=== PATIENT | female | born 1935 | race Caucasian/White ===

== ENCOUNTER 2018-09-09 20:09 | Outpatient (CLI) | payer MEDICARE | END 2018-09-09 20:10 | disposition critical access hospital (66) | LOC: EMS 20:09 | PROVIDERS: ATTEND Surgery | DX: S01.81XA Laceration without foreign body of other part of head, initial encounter (principal); S09.93XA Unspecified injury of face, initial encounter; R41.0 Disorientation, unspecified; X58.XXXA Exposure to other specified factors, initial encounter; Y92.481 Parking lot as the place of occurrence of the external cause | CPT/HCPCS: A0425; A0429 ==

== ENCOUNTER 2018-09-09 20:26 | Emergency (ER) | payer MEDICARE ==
--- NOTE | 2018-09-09 20:42 | ED Physician Documentation ---
PD HPI ALTERED MENTAL STATUS - Stated complaint Stated Complaint: GLF - Chief complaint Chief Complaint: Trauma Hd/Nk - History obtained from History obtained from: Patient, EMS - History of Present Illness Timing - onset: Today Quality / character: Confused, Disoriented Associated symptoms: No: Fever, Headache, Stiff neck, Dyspnea, Cough, NVD, Urinary sx, General weakness, Seizure activity Contributing factors: COPD, Intoxicated (drinks EtOH daily.) Basline status: Alert and oriented X 3, Ambulatory, Independent Recently seen: Not recently seen - Additional information Additional information: visiting from [place] per pt. She fell in the parking lot. States she drank vodka today. denies any symptoms. unable to get up with EMS. abrasion to the L forehead. Review of Systems Unable to obtain: Intoxicated Constitutional: denies: Fever GI: denies: Vomiting Skin: denies: Rash Musculoskeletal: denies: Neck pain, Back pain PD PAST MEDICAL HISTORY - Past Medical History Past Medical History: Yes Respiratory: COPD - Present Medications Home Medications: Ambulatory Orders Medication Instructions Recorded Confirmed Amoxicillin 500 mg PO TID #30 capsule 09/09/18 - Allergies Allergies/Adverse Reactions: Allergies Allergy/AdvReac Type Severity Reaction Status Date / Time No Known Drug Allergies Allergy Verified 09/09/18 20:33 - Living Situation Living Situation: reports: Alone - Social History Does the pt drink ETOH?: Yes ETOH Use: Liquor - Family History Family history: reports: Non contributory - Immunizations Immunizations are current?: Yes PD ED PE NORMAL - Vitals Vital signs reviewed: Yes - General General: Alert and oriented X 3, No acute distress - HEENT HEENT: PERRL, EOMI, Ears normal, Moist mucous membranes, Other (forehead abrasion, left side. mild periorbital ecchymosis L eye. no hyphema. 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, No motor deficit, No sensory deficit, Normal speech - Psych Psych: Normal mood, Normal affect Results - Vitals Vitals: Vital Signs - 24 hr 09/09/18 09/09/18 09/09/18 20:27 20:41 21:56 Temperature 36.7 C Heart Rate 80 85 72 Respiratory 18 18 16 Rate Blood Pressure 121/80 133/66 H 127/56 L O2 Saturation 93 95 96 09/09/18 09/09/18 09/09/18 22:04 22:27 23:06 Temperature Heart Rate 69 74 68 Respiratory 16 18 16 Rate Blood Pressure 126/57 L 104/63 O2 Saturation 94 95 Oxygen O2 Source Room air - Labs Labs: Laboratory Tests 09/09/18 09/09/18 09/09/18 20:41 20:41 21:46 WBC 8.9 RBC 4.58 Hgb 14.8 Hct 46.2 MCV 100.9 H MCH 32.3 H MCHC 32.0 RDW 11.9 L Plt Count 289 MPV 9.1 Neut # (Auto) 3.7 Lymph # (Auto) 4.3 H [place] # (Auto) 0.6 Eos # (Auto) 0.1 Baso # (Auto) 0.0 Absolute Nucleated RBC 0.00 Nucleated RBC % 0.0 Sodium 143 Potassium 4.1 Chloride 105 Carbon Dioxide 27 Anion Gap 11.0 BUN 25 H Creatinine 0.6 Estimated GFR (MDRD) 96 Glucose 102 H Calcium 8.7 Total Bilirubin 0.3 AST 41 ALT 38 Alkaline Phosphatase 42 Total Protein 6.7 Albumin 3.6 Globulin 3.1 Albumin/Globulin Ratio 1.2 Lipase 89 H Urine Color YELLOW Urine Clarity CLEAR Urine pH 5.5 Ur Specific [place] 1.010 Urine Protein NEGATIVE Urine Glucose (UA) NEGATIVE Urine Ketones NEGATIVE Urine Occult Blood NEGATIVE Urine Nitrite NEGATIVE Urine Bilirubin NEGATIVE Urine Urobilinogen 0.2 (NORMAL) Ur Leukocyte Esterase NEGATIVE Ur Microscopic Review NOT INDICATED Urine Culture Comments NOT INDICATED Salicylates < 6.0 Urine Opiates Screen NEGATIVE Ur Oxycodone Screen NEGATIVE Urine Methadone Screen NEGATIVE Ur Propoxyphene Screen NEGATIVE Acetaminophen < 10 L Ur Barbiturates Screen NEGATIVE Ur Tricyclics Screen NEGATIVE Ur Phencyclidine Scrn NEGATIVE Ur Amphetamine Screen NEGATIVE U Methamphetamines Scrn NEGATIVE U Benzodiazepines Scrn NEGATIVE Urine Cocaine Screen NEGATIVE U Cannabinoids Screen NEGATIVE Ethyl Alcohol 278.9 - Rads (name of study) head Ct Radiology: Prelim report reviewed, EMP read contemporaneously, See rad report (No acute intracranial abnormalities. ) cervical spine ct Radiology: Prelim report reviewed, EMP read contemporaneously, See rad report (No acute fracture or subluxation. Asymmetric moderate to severe calcified plaque of the proximal left internal carotid artery. Nonemergent carotid u ltrasound could be performed for further evaluation to assess for stenosis. ) facial bones CT Radiology: Prelim report reviewed, EMP read contemporaneously, See rad report (Comminuted mildly displaced fractures of the anterior and lateral maxillary sinus goodman. Nondisplaced fracture of the superior maxillary sinus wall. Hemorrhage within the left maxillary sinus. ) PD MEDICAL DECISION MAKING - ED course Complexity details: reviewed results, re-evaluated patient, considered differential, d/w patient, d/w acura sales consultant (Dr. Doe, [facility], will come and evaluate ) ED course: 82-year-old female presents the emergency department after a fall in a parking lot while intoxicated. Negative head and C-spine CT. Facial bone CT reveals a comminuted mildly displaced fracture of the anterior and lateral maxillary sinus goodman. Nondisplaced fracture of the superior maxillary sinus wall. Hemorrhage within the left maxillary sinus. Dr. Doe, oral maxillofacial surgery was consulted. No surgery needed. place on amoxicillin. sinus fracture precautions. Follow up in clinic. Patient counseled regarding signs and symptoms for which I believe and urgent re-evaluation would be necessary. Patient with good understanding of and agreement to plan and is comfortable going home at this time This document was made in part using voice recognition software. While efforts are made to proofread this document, sound alike and grammatical errors may occur. Departure - Departure Disposition: 01 Home, Self Care Clinical Impression: Maxillary sinus fracture Qualifiers: Encounter type: initial encounter Fracture type: closed Qualified Code(s): S02.401A - Maxillary fracture, unspecified side, initial encounter for closed fracture Alcohol intoxication Qualifiers: Complication of substance-induced condition: uncomplicated Qualified Code(s): F10.920 - Alcohol use, unspecified with intoxication, uncomplicated Condition: Good Instructions: ED Alcohol Intoxication, ED Fx Face, ED Head Injury Closed Follow-Up: YUSEF DOE [Physician No Access] - Within 1 week Prescriptions: Amoxicillin 500 mg PO TID #30 capsule Comments: Follow-up with Dr. Doe for further evaluation. Return if you worsen. Take all antibiotics until gone. Follow a soft diet. Do not blow your nose. Do not smoke.
[2018-09-09 20:46] LABS: BASOPHILS % (AUTO) 0.5 %; EOSINOPHILS # (AUTO) 0.1 10^3/uL (0.0-0.7); EOSINOPHILS % (AUTO) 1.4 %; HGB - HEMOGLOBIN 14.8 g/dL (12.0-16.0); LYMPHOCYTES # (AUTO) 4.3 10^3/uL (1.5-3.5); LYMPHOCYTES % (AUTO) 48.5 %; MEAN CORPUSCULAR HEMOGLOBIN 32.3 pg (27.0-31.0); MEAN CORPUSCULAR VOLUME 100.9 fL (81.0-99.0); MEAN PLATELET VOLUME 9.1 fL (7.9-10.8); MONOCYTES # (AUTO) 0.6 10^3/uL (0.0-1.0); MONOCYTES % (AUTO) 7.2 %; NEUTROPHILS # (AUTO) 3.7 10^3/uL (1.5-6.6); NEUTROPHILS % (AUTO) 41.9 %; PLT - PLATELET COUNT 289 10^3/uL (130-450); RED BLOOD COUNT 4.58 10^6/uL (4.20-5.40); RED CELL DISTRIBUTION WIDTH 11.9 % (12.0-15.0); WHITE BLOOD COUNT 8.9 x10^3/uL (4.8-10.8)
[2018-09-09 21:01] LABS: ACETAMINOPHEN < 10 ug/mL (10-30); ALBUMIN 3.6 g/dL (3.2-5.5); ALBUMIN/GLOBULIN RATIO 1.2 (1.0-2.2); ALKALINE PHOSPHATASE 42 IU/L (42-121); ALT ALANINE AMINOTRANSFERASE 38 IU/L (10-60); AST ASPARTATE AMINOTRANSFERASE 41 IU/L (10-42); BILIRUBIN,TOTAL 0.3 mg/dL (0.2-1.0); BUN - BLOOD UREA NITROGEN 25 mg/dL (6-20); CALCIUM 8.7 mg/dL (8.5-10.3); CARBON DIOXIDE - CO2 27 mmol/L (21-32); CHLORIDE 105 mmol/L (101-111); CREATININE 0.6 mg/dL (0.4-1.0); GFR - MDRD 96 (>89); GLUCOSE 102 mg/dL (70-100); LIPASE 89 U/L (22-51); SALICYLATE < 6.0 mg/dL; SODIUM 143 mmol/L (135-145); TOTAL PROTEIN 6.7 g/dL (6.7-8.2)
--- NOTE | 2018-09-09 21:39 | CT Report ---
Reason: fall, neck pain Procedure Date: 09/09/2018 Accession Number: [id number] / [id number] Procedure: CT - CERVICAL SPINE WO CPT Code: FULL RESULT: EXAM: CT CERVICAL SPINE WITHOUT CONTRAST DATE: 09/09/2018 08:58 PM. HISTORY: Fall, neck pain. COMPARISONS: None. TECHNIQUE: Thin-section axial images were acquired of the cervical spine without contrast. Post-processing: Coronal and sagittal reformats. Other: None. In accordance with CT protocol optimization, one or more of the following dose reduction techniques were utilized for this exam: automated exposure control, adjustment of mA and/or KV based on patient size, or use of iterative reconstructive technique. FINDINGS: Alignment: Within normal limits. No scoliosis or spondylolisthesis. Bones: No acute fractures. Multilevel degenerative disk disease, worse at C5-C6 with moderate to severe disk space narrowing and osteophytes. Spinal Canal: No high grade narrowing. Moderate spinal canal narrowing at C5-C6 by posterior disk osteophyte complex. Other: Increased calcified plaque is seen at the proximal left internal carotid artery. Visualized thyroid is unremarkable. Septal thickening at the apices, nonspecific, could reflect edema. IMPRESSION: No acute fracture or subluxation. Asymmetric moderate to severe calcified plaque of the proximal left internal carotid artery. Nonemergent carotid ultrasound could be performed for further evaluation to assess for stenosis. RADIA
--- NOTE | 2018-09-09 21:40 | CT Report ---
Reason: facial pain, s/p fall Procedure Date: 09/09/2018 Accession Number: [id number] / [id number] Procedure: CT - MAXILLOFACIAL WO CPT Code: FULL RESULT: EXAM: CT MAXILLOFACIAL WITHOUT CONTRAST EXAM DATE: 09/09/2018 08:58 PM. CLINICAL HISTORY: Facial pain, s/p fall. COMPARISONS: None. TECHNIQUE: Thin-section axial images were acquired of the face without contrast. Post-processing: Coronal and sagittal reformats. Other: None. In accordance with CT protocol optimization, one or more of the following dose reduction techniques were utilized for this exam: automated exposure control, adjustment of mA and/or KV based on patient size, or use of iterative reconstructive technique. FINDINGS: Soft Tissue: Soft tissue swelling anterior to the left maxillary sinus. Orbits: Symmetric and unremarkable. Bones: Comminuted fractures of the anterior and lateral maxillary sinus goodman extending. Mild displacement. Nondisplaced fracture of the superior maxillary sinus. No herniation of orbital contents. There is acute hemorrhage within the left maxillary sinus. Opacification of the left ethmoid air cells and left frontal sinus. Temporomandibular Joints: The temporomandibular joints are symmetric and normally located. Other: None. IMPRESSION: Comminuted mildly displaced fractures of the anterior and lateral maxillary sinus goodman. Nondisplaced fracture of the superior maxillary sinus wall. Hemorrhage within the left maxillary sinus. RADIA
--- NOTE | 2018-09-09 21:41 | CT Report ---
Reason: fall, head injury Procedure Date: 09/09/2018 Accession Number: [id number] / [id number] Procedure: CT - HEAD WO CPT Code: FULL RESULT: EXAM: CT HEAD EXAM DATE: 09/09/2018 08:58 PM. CLINICAL HISTORY: Fall, head injury. COMPARISON: None. TECHNIQUE: Multiaxial CT images were obtained from the foramen magnum to the vertex. Reformats: Sagittal and coronal. IV contrast: None. In accordance with CT protocol optimization, one or more of the following dose reduction techniques were utilized for this exam: automated exposure control, adjustment of mA and/or KV based on patient size, or use of iterative reconstructive technique. FINDINGS: Parenchyma: No intraparenchymal hemorrhage. No evidence of mass, midline shift or CT findings of acute territorial infarction. Han-white differentiation is distinct. Moderate global atrophy. Deep white matter low attenuation likely reflects chronic micro-angiopathic ischemic change. Extraaxial Spaces: No subdural or epidural collections identified. Ventricles: No hydrocephalus Bones: No evidence of acute skull fractures. See CT maxillofacial report. Other: None. IMPRESSION: No acute intracranial abnormalities. RADIA
[2018-09-09] MEDS ORDERED: IPRATROPIUM/ALBUTEROL 3 ML NEB INH STA (21:50)
[2018-09-09] MEDS ORDERED: ACETAMINOPHEN 325 MG TABLET PO STA (21:51)
[2018-09-09 21:58] LABS: MUDS CUTOFF CONCENTRATIONS CUTOFF CONC BELOW:
[2018-09-09 22:02] LABS: BILIRUBIN,URINE NEGATIVE (NEGATIVE); CLARITY,URINE CLEAR (CLEAR); GLUCOSE, URINE (UA) NEGATIVE (NEGATIVE); KETONES,URINE (UA) NEGATIVE (NEGATIVE); LEUKOCYTE ESTERASE, URINE NEGATIVE (NEGATIVE); NITRITE,URINE NEGATIVE (NEGATIVE); OCCULT BLOOD,URINE NEGATIVE (NEGATIVE); PH,URINE 5.5 PH (5.0-7.5); PROTEIN,URINE NEGATIVE (NEGATIVE); UROBILINOGEN,URINE 0.2 (NORMAL) E.U./dL (NORMAL)
[2018-09-09 22:12] LABS: AMPHETAMINE SCREEN,URINE NEGATIVE (NEGATIVE); BENZODIAZEPINES SCREEN, URINE NEGATIVE (NEGATIVE); COCAINE SCREEN URINE NEGATIVE (NEGATIVE); METHADONE SCREEN, URINE NEGATIVE (NEGATIVE); METHAMPHETAMINES SCREEN, URINE NEGATIVE (NEGATIVE); OPIATE SCREEN, URINE NEGATIVE (NEGATIVE); OXYCODONE SCREEN, URINE NEGATIVE (NEGATIVE); PROPOXYPHENE SCREEN, URINE NEGATIVE (NEGATIVE); TRICYCLIC ANTIDEPRESSANT,URINE NEGATIVE (NEGATIVE)
[2018-09-09 23:07] VITALS: BP 104/63
--- NOTE | 2018-09-09 23:33 | CONSULTATION NOTE ---
Referring Provider Name of Referring Provider:: Kemal Owen Consult Date: 09/09/18 Chief Complaint - Chief Complaint Chief Complaint: Left facial pain History of Present Illness - History of Present Illness HPI Comment/Other: Drinking earlier today. Was walking out to her car when she stumbled and fell in the parking lot, striking the left side of her face on the ppavement. She w as transported to the [facility] ER where a CT max/face was taken. The CT demonstrated multiple OMFS fractures. OMFS was consulted for evaluation and management of these fractures. She complains of left facial pain. She reports that her bite has shifted. She cannot remember the details of the fall. History - Past Medical History Respiratory: reports: COPD MRSA Hx?: No - Past Surgical History General: reports: Cholecystectomy, Appendectomy /FANCY PACKER: reports: Hysterectomy - Family & Social History Family History Comment/Other: Reviewed and noncontributory Living Situation: Alone - Substance History Use: Uses substance without health or social issues: Other (Denies tobacco or elicits. Endorses daily etoh w/ agitation and tremors if she doesn't drink.) Meds/Allgy - Home Medications Home Medications: Ambulatory Orders Medication Instructions Recorded Confirmed Amoxicillin 500 mg PO TID #30 capsule 09/09/18 - Allergies Allergies/Adverse Reactions: Allergies Allergy/AdvReac Type Severity Reaction Status Date / Time No Known Drug Allergies Allergy Verified 09/09/18 20:33 Review of Systems - Other Findings Other Findings: A 14 point ROS was completed and found to be negative except as noted above in HPI. Exam - Vital Signs Vital Signs: Vital Signs x48h Temp Pulse Resp BP Pulse Ox 09/09/18 23:06 68 16 104/63 95 09/09/18 22:27 74 18 126/57 L 94 09/09/18 22:04 69 16 09/09/18 21:56 72 16 127/56 L 96 09/09/18 20:41 85 18 133/66 H 95 09/09/18 20:27 36.7 C 80 18 121/80 93 - Physical Exam General Appearance: positive: No acute distress Eyes Bilateral: positive: PERRL, EOMI, Other (OS: moderate edema and ec chymosis. Mild chemosis. No proptosis or enopthalmos. No e/o entrapment.) ENT: positive: Other (Edentulous. Ecchymosis in the left maxillary vestibule. Nares patent bilaterally. Dried blood in the left naris.) Neck: positive: Other (No posterior midline ttp. No swelling. No masses.) Respiratory: positive: Chest non-tender, No respiratory distress Cardiovascular: positive: Regular rate & rhythm Abdomen: positive: Non-tender, No distention Skin: positive: Other (Clean dry and intact except for a 5mm superficial laceration of the left superior eyelid.) Extremities: positive: Non-tender, Full ROM, Nml appearance Neurologic/Psychiatric: positive: Other (Cranial nerves II-XII examined and normal) Conclusion/Plan - Diagnosis Diagnosis: Left heriberto-leforte I fracture with mild displacement. The fracture is noted only in the left pterygoid plates (not the right) but there is no palatal fracture. - Plan Plan: Because her fracture is not complete, and because the maxilla is not mobile to bimanual manipulation, for the time being we are going to manage this fracture nonoperatively. The fracture of the left orbital floor is minimally displaced and not likely to result in enophthalmos. The laceration of the left superior eyelid is superficial and does not justify repair. Follow up in 1-2 weeks in clinic for reevaluation No nose blowing, no drinking through a straw, sneeze with mouth open Amoxicillin for 7 days Chlorhexidine mouthrinse for 7 days Strict non-chew diet for 4 weeks. - Lab Results Fish Bones: 09/09/18 20:41 09/09/18 20:41 - Diagnostic Imaging Results Diagnostic Imaging Results: positive: Other (CT max/face reviewed. There is a left leforte I fracture with the area of greatest displacement being the left piriform rim. The left pteyrgoid plates are fractured but not displaced. The right pterygoid plates are intact. There is no appreciable palatal fracture. There is a small fracture of the left orbital floor without significant displacement. There is no radiographic evidence of entrapment of tissue. The L zygomatic arch is intact.)
== END 2018-09-10 00:10 | disposition home or self-care (01) ==
LOC: ED 20:26
DX: S02.411A LeFort I fracture, initial encounter for closed fracture (principal); S02.32XA Fracture of orbital floor, left side, initial encounter for closed fracture; S01.112A Laceration without foreign body of left eyelid and periocular area, initial encounter; S00.81XA Abrasion of other part of head, initial encounter; W01.0XXA Fall on same level from slipping, tripping and stumbling without subsequent striking against object, initial encounter; Y93.01 Activity, walking, marching and hiking; Y92.481 Parking lot as the place of occurrence of the external cause; F10.920 Alcohol use, unspecified with intoxication, uncomplicated; J44.9 Chronic obstructive pulmonary disease, unspecified
CPT/HCPCS: 36415; 70450; 70486; 72125; 80053; 81003; 83690; 85025; 94640; 99284; A9270; 80306; 80307; 80320; 80329; 81001; 87086